=== PATIENT | male | born 1940 | race African-American/Black ===

== ENCOUNTER 2020-04-20 08:21 | Emergency (ER) | payer OTHER ==
[2020-04-20 09:09] VITALS: BP 151/89; PULSE 75; TEMP 97.7; BMI 38.6
[2020-04-20] MEDS ORDERED: MECLIZINE HCL 25 MG TABLET (FP) PO ONE (09:35)
[2020-04-20] MEDS ORDERED: MECLIZINE HCL 25 MG TABLET (FP) ONE (09:58)
[2020-04-20 10:43] LABS: BASO % 0.6 % (0-2.0); EOS % 0.6 % (0-4.5); HEMATOCRIT 36.3 % (35.4-49); HEMOGLOBIN 12.7 GM/dL (11.7-16.9); LYMPH % 22.3 % (8-40); MCH 33.7 pg (25.7-33.7); MCHC 35.1 g/dl (32.0-35.9); MEAN CELL VOLUME 96.1 fl (80-96); MEAN PLT VOLUME 11.5 fl (7.5-11.1); MONO % 13.9 % (3.8-10.2); NEUT % 62.6 % (42.8-82.8); PLATELET COUNT 117 K/MM3 (134-434); RBC 3.78 M/mm3 (4.00-5.60); RDW 14.6 % (11.9-15.9); WHITE BLOOD COUNT 5.3 K/mm3 (4.0-10.0)
[2020-04-20 10:52] LABS: INR 1.05 (0.83-1.09); PROTHROMBIN TIME (PATIENT) 12.9 SEC (9.7-13.0)
[2020-04-20 11:11] LABS: POTASSIUM 3.5 mmol/L (3.5-5.1)
[2020-04-20 11:14] LABS: ALBUMIN 3.5 g/dl (3.4-5.0); BLOOD UREA NITROGEN 12.4 mg/dL (7-18)
[2020-04-20 11:17] LABS: CREATININE 1.3 mg/dL (0.55-1.3)
[2020-04-20 11:18] LABS: BILIRUBIN,TOTAL 0.9 mg/dL (0.2-1); TOT PROT 6.8 g/dl (6.4-8.2)
[2020-04-20 11:21] LABS: N-TERMINAL BNP 92.5 pg/ml (5-450)
== END 2020-04-20 12:15 | disposition home or self-care (01) ==
LOC: JER 08:21
DX: H81.399 Other peripheral vertigo, unspecified ear (principal)
CPT/HCPCS: 36415; 70450-TC; 71045-TC-FY; 80053; 82550; 82553; 83880; 84484; 85025; 85610; 93005; 93010; 99285-25

== ENCOUNTER 2021-10-12 01:13 | Observation (INO) | payer OTHER ==
[2021-10-12] MEDS ORDERED: SODIUM CHLORIDE 0.9% 500 ML INFUS.BAG IV ONE (02:00)
[2021-10-12 02:34] LABS: BASO % 0.7 % (0-2.0); HEMATOCRIT 37.8 % (35.4-49); HEMOGLOBIN 12.6 GM/dL (11.7-16.9); MCH 31.8 pg (25.7-33.7); MCHC 33.5 g/dl (32.0-35.9); MONO % 11.6 % (3.8-10.2); NEUT % 53.7 % (42.8-82.8); PLATELET COUNT 125 10^3/uL (134-434); RBC 3.97 M/mm3 (4.00-5.60); WHITE BLOOD COUNT 6.6 K/mm3 (4.0-10.0)
[2021-10-12 02:40] LABS: INR 1.15 (0.83-1.09); PROTHROMBIN TIME (PATIENT) 13.3 SEC (9.7-13.0)
[2021-10-12 02:43] LABS: ACTIVATED PTT 28.9 SECONDS (25.2-36.5)
[2021-10-12 02:52] LABS: ALBUMIN 3.3 g/dl (3.4-5.0); CALCIUM 8.5 mg/dL (8.5-10.1)
[2021-10-12 02:53] LABS: BLOOD UREA NITROGEN 13.2 mg/dL (7-18)
[2021-10-12 02:55] LABS: CREATININE 1.3 mg/dL (0.55-1.3)
[2021-10-12 02:57] LABS: BILIRUBIN,TOTAL 0.7 mg/dL (0.2-1); TOT PROT 6.7 g/dl (6.4-8.2)
[2021-10-12 05:44] LABS: EPI CELLS >36 /uL (0-25.1); HYALINE CASTS 6 /uL (0-3.1); PH,URINE 5.5 (5.0-8.0); URINE APPEARANCE TURBID; URINE BACTERIA 2 /uL (0-1359); URINE BILIRUBIN 1+ (NEGATIVE); URINE COLOR ORANGE; URINE GLUCOSE (UA) NEGATIVE (NEGATIVE); URINE KETONE NEGATIVE (NEGATIVE); URINE LEUK ESTERASE 2+ (NEGATIVE); URINE NITRITE NEGATIVE (NEGATIVE); URINE PROTEIN 3+ (NEGATIVE); URINE RBC 16525 /uL (0-23.9); URINE WBC 367 /uL (0-25.8)
[2021-10-12] MEDS ORDERED: POTASSIUM CHLORIDE TABS 20 MEQ TABLET.ER (FP) PO ONE (06:13)
[2021-10-12] MEDS ORDERED: CEFTRIAXONE 1,000 MG in DEXTROSE 5%-WATER - 50 ML IVPB ONE (06:34)
[2021-10-12] MEDS ORDERED: POTASSIUM CHLORIDE ORAL LIQUID 20 MEQ/15 ML ONE (06:38)
[2021-10-12] MEDS ORDERED: CEFTRIAXONE 1 GM/50 ML BAG ONE (07:24)
[2021-10-12] MEDS ORDERED: SODIUM CHLORIDE 1,000 ML IV SCH (09:00)
[2021-10-12] MEDS ORDERED: TERAZOSIN HCL 10 MG PO SCH (10:00)
[2021-10-12] MEDS ORDERED: TOLTERODINE TARTRATE LA 2 MG CAP.SR.24H PO SCH (10:00)
[2021-10-12] MEDS ORDERED: METOPROLOL TARTRATE 25 MG TABLET (FP) PO SCH (10:00)
[2021-10-12 10:25] VITALS: BMI 36.4
[2021-10-12] MEDS: SPIRONOLACTONE 25 MG TABLET PO SCH (11:23)
[2021-10-12] MEDS: ASPIRIN 81 MG CHEWABLE TABLETS PO SCH (11:24)
[2021-10-12] MEDS: NIFEdipine E.R. 30 MG TABLET PO SCH (11:24)
[2021-10-12] MEDS: FINASTERIDE 5 MG TABLET (FP) PO SCH (11:24)
[2021-10-12] MEDS: TERAZOSIN HCL 5 MG CAPSULE PO SCH (14:03)
[2021-10-12] MEDS: ATORVASTATIN CA 20 MG TABLET (FP) PO SCH (22:05)
[2021-10-13 07:11] LABS: BASO % 0.3 % (0-2.0); EOS % 1.8 % (0-4.5); HEMATOCRIT 36.5 % (35.4-49); HEMOGLOBIN 12.7 GM/dL (11.7-16.9); LYMPH % 27.4 % (8-40); MCHC 34.9 g/dl (32.0-35.9); MEAN CELL VOLUME 94.7 fl (80-96); MEAN PLT VOLUME 11.6 fl (7.5-11.1); MONO % 11.8 % (3.8-10.2); NEUT % 58.7 % (42.8-82.8); PLATELET COUNT 113 10^3/uL (134-434); RBC 3.86 M/mm3 (4.00-5.60); RDW 14.1 % (11.9-15.9); WHITE BLOOD COUNT 6.1 K/mm3 (4.0-10.0)
[2021-10-13 07:18] LABS: INR 1.22 (0.83-1.09); PROTHROMBIN TIME (PATIENT) 14.1 SEC (9.7-13.0)
[2021-10-13 07:20] LABS: ACTIVATED PTT 27.6 SECONDS (25.2-36.5)
[2021-10-13 07:43] LABS: CALCIUM 8.3 mg/dL (8.5-10.1)
[2021-10-13 07:44] LABS: BLOOD UREA NITROGEN 10.1 mg/dL (7-18); MAGNESIUM 1.9 mg/dL (1.8-2.4)
[2021-10-13 07:47] LABS: PHOSPHOROUS 2.6 mg/dL (2.5-4.9)
[2021-10-13 07:48] LABS: BILIRUBIN,TOTAL 1.1 mg/dL (0.2-1); TOT PROT 6.5 g/dl (6.4-8.2)
[2021-10-13] MEDS: SPIRONOLACTONE 25 MG TABLET PO SCH (09:58)
[2021-10-13] MEDS: FINASTERIDE 5 MG TABLET (FP) PO SCH (09:58)
[2021-10-13] MEDS: TERAZOSIN HCL 5 MG CAPSULE PO SCH (09:58)
[2021-10-13] MEDS: ASPIRIN 81 MG CHEWABLE TABLETS PO SCH (09:58)
[2021-10-13] MEDS: NIFEdipine E.R. 30 MG TABLET PO SCH (09:58)
[2021-10-13] MEDS: ATORVASTATIN CA 20 MG TABLET (FP) PO SCH (22:05)
[2021-10-14 08:47] LABS: BASO % 0.5 % (0-2.0); EOS % 1.6 % (0-4.5); HEMATOCRIT 36.6 % (35.4-49); HEMOGLOBIN 12.9 GM/dL (11.7-16.9); MCHC 35.2 g/dl (32.0-35.9); MEAN PLT VOLUME 11.8 fl (7.5-11.1); NEUT % 54.9 % (42.8-82.8); PLATELET COUNT 116 10^3/uL (134-434); RBC 3.89 M/mm3 (4.00-5.60); RDW 13.7 % (11.9-15.9); WHITE BLOOD COUNT 5.9 K/mm3 (4.0-10.0)
[2021-10-14 09:09] LABS: BLOOD UREA NITROGEN 9.3 mg/dL (7-18)
[2021-10-14 09:10] LABS: ALBUMIN 3.1 g/dl (3.4-5.0); CALCIUM 8.4 mg/dL (8.5-10.1)
[2021-10-14 09:14] LABS: BILIRUBIN,TOTAL 0.8 mg/dL (0.2-1); TOT PROT 6.6 g/dl (6.4-8.2)
[2021-10-14] MEDS: SPIRONOLACTONE 25 MG TABLET PO SCH (09:42)
[2021-10-14] MEDS: NIFEdipine E.R. 30 MG TABLET PO SCH (09:42)
[2021-10-14] MEDS: FINASTERIDE 5 MG TABLET (FP) PO SCH (09:42)
[2021-10-14] MEDS: ASPIRIN 81 MG CHEWABLE TABLETS PO SCH (09:42)
[2021-10-14] MEDS: TERAZOSIN HCL 5 MG CAPSULE PO SCH ×2 (09:43→11:16)
[2021-10-14] MEDS: KCL 10 MEQ IVPB 10 MEQ/100 ML INFUS.BAG IVPB SCH ×3 (15:51→18:00)
[2021-10-14] MEDS ORDERED: POTASSIUM CHLORIDE TABS 20 MEQ TABLET.ER (FP) PO ONE (17:23)
[2021-10-14 19:10] VITALS: BP 116/55; PULSE 86; TEMP 98.1
== END 2021-10-14 19:30 | disposition home or self-care (01) ==
LOC: JER 01:13 → INTOOBSV 06:14 → JERBED 06:14 → J4W 10:27
PROVIDERS: ADMIT Hospitalist
PROC: 3E03329 Introduction of Other Anti-infective into Peripheral Vein, Percutaneous Approach (ICD-10-PCS; principal; 2021-10-12)
PROC: 3E0337Z Introduction of Electrolytic and Water Balance Substance into Peripheral Vein, Percutaneous Approach (ICD-10-PCS; 2021-10-12)
PROC: 3E033GC Introduction of Other Therapeutic Substance into Peripheral Vein, Percutaneous Approach (ICD-10-PCS; 2021-10-12)
DX: R42 Dizziness and giddiness (principal); R00.1 Bradycardia, unspecified; E87.6 Hypokalemia; Z98.890 Other specified postprocedural states; E78.5 Hyperlipidemia, unspecified; I10 Essential (primary) hypertension; N40.0 Benign prostatic hyperplasia without lower urinary tract symptoms; E66.8 Other obesity; Z68.36 Body mass index [BMI] 36.0-36.9, adult; Z88.0 Allergy status to penicillin
CPT/HCPCS: 0241U-QW; 36415; 71045-TC-FY; 76775-TC; 76856-TC; 80053; 80061; 81003; 82962; 83735; 84100; 84443; 84484; 85025; 85610; 85730; 87086; 87186; 93005; 93010; 93306-TC; 96361; 96365; 96367; 97116-GP; 97161-GP; 99285-25; G0378